=== PATIENT | male | born 1980 | race Caucasian/White ===

== ENCOUNTER 2020-11-23 19:12 | Emergency (ER) | payer OTHER ==
[~2020-11-23] VITALS: Ht 170.2 cm; Wt 90.9 kg
[2020-11-23] MEDS ORDERED: IBUPROFEN 600 MG TABLET PO ONE (19:30)
[2020-11-23] MEDS ORDERED: LIDOCAINE 5% TRANSDERMAL PATCH TD ONE (19:30)
[2020-11-23] MEDS ORDERED: ACETAMINOPHEN 500 MG TABLET PO ONE (19:30)
[2020-11-23 20:39] VITALS: BP 134/89
== END 2020-11-23 21:58 | disposition home or self-care (01) ==
LOC: EMS 19:12
DX: M25.512 Pain in left shoulder (principal); F17.210 Nicotine dependence, cigarettes, uncomplicated
CPT/HCPCS: 71250; 99284; 73030-TC; Z7502; Z7610